=== PATIENT | female | born 1955 | race Caucasian/White ===

== ENCOUNTER 2020-08-05 12:07 | Outpatient (CLI) | payer MEDICARE ==
--- NOTE | 2020-08-05 13:55 | MRI ---
EXAM: MRI left hip PROVIDED CLINICAL HISTORY: Left hip pain COMPARISON: None FINDINGS: Evaluation is limited by patient body habitus. There is a nondisplaced fracture involving the left inferior pubic ramus with adjacent soft tissue ed haydee. There is marrow edema noted at the junction of the left superior pubic ramus and left acetabulum with minimal linear signal alteration also suspicious for nondisplaced fracture. Regional marrow signal appears otherwise unremarkable. The amount of fluid within the left hip joint appears physiologic. There is partial thickness undersurface tearing involving the insertional fibers of the gluteus mediu s tendon at the posterior facet insertion. There is mild noncircumscribed fluid signal intensity within the region of the trochanteric bursa. The left hip flexor, adductor, hamstring and gluteal ten dons appear otherwise intact. There is low-grade partial thickness interstitial tearing involving the right common hamstring tendon origin visualized on the large [id number] coronal images. IMPRESSION: 1. Nondisplaced superior and inferior pubic rami fractures on the left. 2. Partial thickness undersurface tearing involving the posterior facet insertion of the left gluteus medias tendon.
== END 2020-08-05 12:08 | disposition home or self-care (01) ==
LOC: BICMRI 12:07
PROVIDERS: ATTEND Orthopaedic Surgery
DX: M25.552 Pain in left hip (principal); S32.502A Unspecified fracture of left pubis, initial encounter for closed fracture; S76.012A Strain of muscle, fascia and tendon of left hip, initial encounter